=== PATIENT | male | born 1995 | race Caucasian/White ===

== ENCOUNTER 2022-06-25 14:36 | Outpatient (CLI) | payer OTHER ==
[2022-06-25 15:46] VITALS: BP 120/82
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
== END 2022-06-25 14:37 | disposition home or self-care (01) ==
LOC: SC 14:36
PROVIDERS: ATTEND Nurse Practitioner Family
DX: R06.83 Snoring (principal); G47.8 Other sleep disorders; R06.81 Apnea, not elsewhere classified; G47.10 Hypersomnia, unspecified; E66.3 Overweight; Z68.27 Body mass index [BMI] 27.0-27.9, adult
CPT/HCPCS: 99203; 99212

== ENCOUNTER 2022-07-03 14:21 | Outpatient (CLI) | payer OTHER | END 2022-07-03 14:22 | disposition home or self-care (01) | LOC: SC 14:21 | PROVIDERS: ATTEND Nurse Practitioner Family | DX: R09.02 Hypoxemia (principal) | CPT/HCPCS: 95806 ==

== ENCOUNTER 2022-07-18 12:49 | Outpatient (CLI) | payer OTHER ==
[2022-07-18 13:18] VITALS: BP 108/68
--- NOTE | 2022-07-18 13:18 | SLEEP CARE CONSULTATION ---
Information from patient questionnaire entered by Elijah King. I have reviewed and concur with the information entered by Elijah King. This document represents the service I personally performed and the decisions made by , Marissa Holbrook ARNP. History of Present Illness Service Date and Time: 07/18/2022 1249 Initial [place] Sleepiness Scale score: 17 (06/24/2022) Current [place] Sleepiness Scale score: 14 (07/18/22) Additional HPI information: SAMUEL JAEGER returns for follow up and results of the recently performed home sleep study. The patient was informed of the following findings: No significant sleep disordered breathing with an average AHI of 3.6 and vonda oxygen saturation of 89%. I explained the pathophysiology behind obstructive sleep apnea. Patient does not have sleep apnea and was advised how weight gain could increase the risk of developing sleep apnea in the future. I strongly encouraged the patient to lose weight. Patient has mild snoring. Snoring can be reduced by weight loss. Weight loss is best achieved with diet consult. Patient instructed to contact PCP for referral. Snoring can also be treated with an oral appliance from a dentist. Advised to check insurance coverage. In addition, an ENT evaluation can be do to see if other treatment is indicated. Patient counseled not drink alcohol less than 4 hours before bedtime as it can increase snoring and apnea. Patient was cautioned about risks of drowsy driving until sleepiness symptoms resolve. Sleep Study - Results Type of Sleep Study: Home sleep study (DONE 07/03/22) Prior sleep studies: No Polysomnography/Home Sleep Study results: Physician Impression: The quality of the study is good. The length of the study is adequate (> 240 minutes). Please also see the tabulated and graphic data. 1. No significant sleep disordered breathing, with an AHI of 3.6/hr and vonda SaO2 of 89%. During the study, the patient had 12 apneas (12 obstructive, 0 central, 0 mixed) and 13 hypopneas. The longest episode lasted 66.0 seconds. The few respiratory events occurred more frequently during supine sleep (supine AHI was 4.7 and non-supine, 2.71). 2. Hypoxemia (ICD-10 R09.02), minimal, with the lowest oxygen saturation of 89 % and 0.4 minutes with SaO2 under 90%. Baseline oxygen saturation was normal (Average oxygen saturation was 96%). Allergies and Home Medications Home medication list reviewed: Yes (no changes) Review of Systems Review of systems same as previous: Yes (no changes) Physical Exam Vital signs obtained and entered by: ELIAS CORBIN Blood Pressure: 108/68 (LEFT ARM ) Cuff size: regular Heart Rate: 68 O2 Saturation: 96 Height: 5 ft 6 in Weight: 177 lb Body Mass Index: 28.5 BMI Classification: Overweight Impression and Plan Snoring but no significant sleep disordered breathing. Patient advised that often weight loss will reduce snoring as well as apnea risk. An oral appliance can also be used for snoring. This would require a dental consultation. Patient cautioned not to use other online appliances as can cause bite issues. A list of accredited dentists in [facility] and one local dentist who makes oral appliances is available in office. Patient is advised to check if insurance will cover. An ENT consult can also be helpful to determine if any other treatment is an option. * Attempt to lose weight * Avoid alcohol consumption near bedtime * The patient is cautioned about driving until sleepiness is completely resolved. * Return as needed for follow up. Counseling Topics: Weight loss health impact Visit Type: In Office Time Spent with Patient (minutes): 14 Provider Statement: I spent 100% of the Face to Face Visit with the patient with greater than 50% spent counseling the patient and coordination of care.
== END 2022-07-18 12:50 | disposition home or self-care (01) ==
LOC: SC 12:49
PROVIDERS: ATTEND Nurse Practitioner Family
DX: R06.83 Snoring (principal); E66.3 Overweight; Z68.28 Body mass index [BMI] 28.0-28.9, adult
CPT/HCPCS: 99212